=== PATIENT | male | born 1960 | race Caucasian/White ===

== ENCOUNTER 2019-04-17 06:10 | Inpatient (IN) | payer MEDICARE, OTHER ==
[2019-04-17] MEDS ORDERED: ONDANSETRON HCL/PF 4 MG/ 2ML VIAL ONE (08:48)
[2019-04-17] MEDS ORDERED: SODIUM CHLORIDE IRRIG SOLUTION 3,000 ML IRRIG.SOLN IR ONE (08:48)
[2019-04-17] MEDS ORDERED: LACTATED RINGERS 1,000 ML IV.SOLN IV ONE (08:48)
[2019-04-17] MEDS ORDERED: LIDOCAINE HCL 1% PF 300MG/30ML VIAL ONE (08:48)
[2019-04-17] MEDS ORDERED: MEPERIDINE (NF) 100 MG/ML INJ ONE ×3 (08:48→09:37)
[2019-04-17] MEDS ORDERED: MIDAZOLAM HCL 2 MG/2 ML VIAL ONE (08:48)
[2019-04-17] MEDS ORDERED: fentaNYL CITRATE/PF 100 MCG/2 ML INJ. ONE ×2 (08:48→09:35)
[2019-04-17] MEDS ORDERED: ROCURONIUM BROMIDE 10 MG/ML 5ML VIAL ONE (08:48)
[2019-04-17] MEDS ORDERED: ceFAZolin SODIUM 1 GM VIAL ONE (08:48)
[2019-04-17] MEDS ORDERED: PROPOFOL 200 MG/20 ML VIAL IV ONE (08:48)
[2019-04-17] MEDS ORDERED: FAMOTIDINE 20 MG/2 ML VIAL IV ONE (08:48)
[2019-04-17] MEDS ORDERED: HYDROmorphone HCL/PF 1 MG/ML VIAL ONE ×2 (08:48→09:19)
[2019-04-17] MEDS ORDERED: SUGAMMADEX SODIUM 200 MG/2 ML VIAL IV ONE (08:48)
[2019-04-17] MEDS ORDERED: BUPIV. HCL 0.25% (2.5MG/ML)/EPI. (1:200,000) PF 10 ML VIAL IM ONE (08:48)
[2019-04-17] MEDS ORDERED: DEXAMETHASONE SODIUM PHOSPHATE 10 MG/ML VIAL ONE (08:48)
[2019-04-17] MEDS ORDERED: LIDOCAINE HCL 2% PF 100MG/5ML VIAL IJ ONE (08:48)
[2019-04-17] MEDS ORDERED: SEVOFLURANE 250 ML LIQUID IH ONE (08:48)
[2019-04-17] MEDS ORDERED: 0.9 % SODIUM CHLORIDE 1,000 ML IV ONE (10:20)
[2019-04-17 10:26] VITALS: BMI 38.2
[2019-04-17] MEDS ORDERED: PROMETHAZINE HCL 25 MG in 0.9 % SODIUM CHLORIDE 50 ML IV PRN (10:27)
[2019-04-17] MEDS ORDERED: ONDANSETRON HCL/PF 4 MG/ 2ML VIAL IVP PRN (10:27)
[2019-04-17] MEDS ORDERED: IPRATROPIUM/ALBUTEROL SULFATE 3 ML AMPUL.NEB NEB PRN (10:27)
[2019-04-17] MEDS ORDERED: ACETAMINOPHEN 1,000 MG/100 ML INJ IV PRN (10:27)
[2019-04-17] MEDS: 0.9 % SODIUM CHLORIDE 1,000 ML IV SCH ×2 (10:41→17:45)
--- NOTE | 2019-04-17 10:46 | History and Physical Report ---
History of Present Illnes - History of Present Illness Reason for Visit: S/P LSG History of Present Illness: Patient is a 59-year-old male who has tried multiple diets and exercise programs with no success. he has always struggled with his weight. Patient and surgeon decided to proceed with gastric sleeve procedure. Procedure went well- He will be admitted and monitored s/p surgical intervention. Patient has been on a liquid diet prior to surgery so he is a risk of dehydration s/p surgery. He will be admitted for IV hydration to help hydrate patient until he is able to tolerate a sufficient oral intake, will treat pain with IV medication until patient is able to tolerate oral meds, IV antiemetics to help reduce episodes of nausea and/or vomiting. Patient will be monitored closely using telemetry s/p surgery d/t HTN. Patient appears very uncomfortable s/p surgery. Will use incentive spirometer frequently due to KANG and will use CPAP when sleeping. 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: Migraine Gastrointestinal: GERD Psych: Anxiety, Depression Musculoskeletal: Chronic low back pain, Other (Joint Pain) Endocrine: obesity (Morbid) - Past Surgical History Past Surgical History: Hernia Repair, Other (RFA) - Past Social History Smoke: No Alcohol: None Drugs: None Lives: With Family Domestic Violence: Negative - Health Maintenance Health Maintenance: Cholesterol, Tetanus, Influenza Vaccine, Pneumococcal Vaccine Influenza Vaccine: Current for this Influenza Season Pneumonia Vaccine: Yes Resuscitation Status: Resusciation Status Resuscitation Status Full Code Review of Systems - Review of Systems Constitutional: negative: Fever, Chills Eyes: negative: pain, conjunctivae inflammation, eyelid inflammation ENT: negative: Ear Pain, Ear Discharge, Throat Pain Respiratory: SOB with Excertion (due to obesity). negative: Cough, Shortness of Breath Cardiovascular: Paroxysmal Noc. Dyspnea. negative: Chest Pain, Edema Gastrointestinal: Nausea, Abdominal Pain (s/p LSG) Genitourinary: negative: Dysuria Musculoskeletal: Back Pain, Leg Pain, Other (chronic joint pain) Skin: Other (incisions to abdomen s/p LSG) Neurological: Weakness - Medications/Allergies Allergies/Adverse Reactions: Allergies Allergy/AdvReac Type Severity Reaction Status Date / Time No Known Allergies Allergy Unverified 04/17/19 10:17 Home Medications: Home Medications Atorvastatin Calcium 10 mg PO HS 04/17/19 Gabapentin [Neurontin] 600 mg PO BID 04/17/19 Hydrocodone/Acetaminophen [[place] 10-325 Tablet] 1 each PO Q6H PRN 04/17/19 Lisinopril 20 mg PO DAILY 04/17/19 Lisinopril/Hydrochlorothiazide [Zestoretic] 1 each PO DAILY 04/17/19 Methocarbamol 750 mg PO DAILY 04/17/19 Omeprazole 40 mg PO DAILY 04/17/19 Tramadol HCl [Ultram] 50 - 100 mg PO DAILY PRN 04/17/19 Current Inpatient Medications: Current Inpatient Medications Acetaminophen (Ofirmev) 1,000 mg IV Q6H PRN PRN Reason: For Mild Breakthrough Pain Stop: 04/21/19 10:26 Hydrocodone Bitart/Acetaminophen (Hycet 7.5-325mg/15 Ml Ud Cup) 15 ml PO Q4 PRN PRN Reason: Moderate Pain (Score 5-7) Stop: 04/21/19 10:26 Albuterol/Ipratropium (Duoneb) 3 ml NEB Q4 PRN PRN Reason: Wheezing Stop: 05/17/19 10:26 Enoxaparin Sodium (Lovenox) 40 mg SQ DAILY [facility] Stop: 05/02/19 10:28 Famotidine (Pepcid) 20 mg IVP BID [facility] Stop: 04/21/19 20:59 Cefazolin Sodium 1 gm/ Sodium (Chloride) 50 mls @ 100 mls/hr IV Q8H [facility] Stop: 04/18/19 00:29 Sodium Chloride (Normal Saline) 1,000 mls @ 150 mls/hr IV Q8H [facility] Stop: 05/17/19 10:29 Promethazine HCl 25 mg/ Sodium (Chloride) 51 mls @ 200 mls/hr IV Q6 PRN PRN Reason: Nausea / Vomiting Stop: 04/21/19 10:26 Ketorolac Tromethamine (Toradol) 30 mg IV Q6H PRN PRN Reason: For Mild Pain Stop: 04/22/19 09:59 Morphine Sulfate () 2 mg IV Q2H PRN PRN Reason: Severe Pain 8-10 Stop: 04/21/19 10:26 Ondansetron HCl (Zofran) 4 mg IVP Q6H PRN PRN Reason: Nausea / Vomiting Stop: 08/26/19 10:26 Exam - Exam Vital Signs: Vital Signs (72 hours) 04/17/19 04/17/19 04/17/19 10:19 10:20 10:27 Temperature 98.6 F 98.6 F Pulse Rate 75 Pulse Rate [ 66 66 Right Pulse ox] Respiratory 18 18 Rate Blood Pressure 158/80 158/80 [Right Arm] O2 Sat by Pulse 93 93 93 Oximetry General: Alert, Oriented to Person, Oriented to Place, Mild distress, Other (Still arousing s/p surgery), Morbidly Obese HEENT: PERRLA, EOMI, Nose Mucous membr. moist/[place] Neck: Normal Range of Motion Carotids: No bruit Lungs: Clear to auscultation, Normal air movement (Hurts to take a deep breath) Cardiovascular: Regular rate, Normal S1, Normal S2 Peripheral Edema: None Peripheral Pulses: 2+ Abdomen: Soft, Decreased Bowel Sounds Integumentary: Warm, Dry, Pale, Other (Incison sites x 5 without redness/yumiko thema/drainage- skin adhesive intact) Extremities: No edema, Normal pulses, No tenderness/swelling Neurological: Strength Equal Bilat, Sensation intact Psych/Mental Status: Mental status NL, Appropriate Affect Assessment/Plan - Assessment/Plan (1) Status post gastric surgery Status: Acute Current Visit: Yes Plan: Plan to admit for IV hydration, IV pain meds, and IV antiemetics. Lovenox and SCDs to help prevent DVTs, IS and frequent ambulation will be implemented. Start ice chips and advance diet as tolerated. (2) Morbid obesity due to excess calories Status: Acute Current Visit: Yes Plan: Patient is s/p gastric sleeve. We will assist patient with implementing gastric sleeve diet protocol starting with ice chips and clear liquids and advancing as tolerated. (3) KANG on CPAP Status: Acute Current Visit: Yes Plan: Will use CPAP when sleeping (4) Hypertension Status: Acute Current Visit: Yes Qualifiers: Hypertension type: essential hypertension Qualified Code(s): I10 - Essential (primary) hypertension Plan: Will hold medication until able to tolerate PO- will monitor blood pressures closely (5) Depression with anxiety Status: Acute Current Visit: Yes Plan: Will hold medication at this time until patient can tolerate PO; will assess patient regularly (6) Chronic joint pain Status: Acute Current Visit: Yes Plan: Will give pain meds as needed for abdominal pain and monitor his chronic pain; may implement K-pad if needed (7) Nausea after anesthesia Status: Acute Current Visit: Yes Plan: Pepcid IV BID ordered; IV antiemetics, and IVFs VTE Assessment - RISK FACTOR SCORE VTE RISK FACTOR SCORES: AGE 40-60 YEARS, OBESITY, MAJOR SURGERY/ANESTHESIA TIME > 1 HOUR - RISK VTE HIGH RISK: SCORE OF 3-4 (RISK PROXIMAL DVT 4-8%) PROPHYLAXIS NEEDED (Lovenox daily, frequent ambulation, Incentive spirometer, SCDs)
[2019-04-17] MEDS: MORPHINE SULFATE 2 MG/ML VIAL IV PRN ×4 (10:50→20:07)
[2019-04-17] MEDS: ceFAZolin SODIUM 1 GM in 0.9 % SODIUM CHLORIDE 50 ML IV SCH (16:25)
[2019-04-17] MEDS: FAMOTIDINE 20 MG/2 ML VIAL IVP SCH (23:55)
[2019-04-18] MEDS: ceFAZolin SODIUM 1 GM in 0.9 % SODIUM CHLORIDE 50 ML IV SCH (01:03)
[2019-04-18] MEDS: HYDROcodone-ACETAMIN 7.5-325/15ML SOLN UD CUP PO PRN ×4 (01:06→19:56)
[2019-04-18] MEDS: MORPHINE SULFATE 2 MG/ML VIAL IV PRN ×2 (04:07→09:09)
[2019-04-18] MEDS: 0.9 % SODIUM CHLORIDE 1,000 ML IV SCH ×3 (04:58→18:17)
[2019-04-18 07:33] LABS: eGFR (Non-African) > 60
[2019-04-18 07:34] LABS: BASOPHILS % 0.3 % (0.0-1.5); NEUTROPHILS # 7.8 # k/uL (1.4-7.7)
--- NOTE | 2019-04-18 07:44 | Inpatient Progress Note ---
Subjective - Required Recertification Statement I anticipate X number of days because-include discharge plan: 1 - Review of Systems Events since last encounter: Patient is lying in bed this morning awake. He states that he did not get much sleep. He was having a lot of discomfort last night. He states that pain is improving. He has had some nausea and moderate discomfort from the gas. He denies any chest pain or shortness of breath. He has been up ambulating in the halls and using incentive spirometer while awake.He did have a low grade fever this morning-used incentive spirometer and walked and it lowered. He was having some increased pain this morning- told on him and stated that he chugged a glass of juice- re-educated patient about sipping. General: Denies: Chills, Night Sweats HEENT: Denies: Head Aches, Dysphasia Pulmonary: Denies: Dyspnea, Cough Cardiovascular: Denies: Chest Pain, Light Headedness Gastrointestinal: Nausea, Vomiting, Abdominal Pain (s/p LSG) Genitourinary: Denies: Dysuria Musculoskeletal: Back Pain Neurological: Denies: Weakness Objective - Exam Vitals and I&O: Vital Signs Temp 98.3 F 04/18/19 05:49 Pulse 59 L 04/18/19 05:49 Resp 20 04/18/19 05:49 BP 134/59 04/18/19 05:49 Pulse Ox 98 04/18/19 06:00 Intake & Output 04/17/19 04/17/19 04/18/19 11:59 23:59 11:59 Intake Total 50 Output Total 250 600 600 Balance -250 -550 -600 Weight 114.305 kg Intake: Oral 50 Output: Urine 250 600 600 Other: Voiding Method Urinal # Voids 1 # Bowel Movements 0 0 General: Alert, Oriented to Person, Oriented to Place, Oriented to Time, Cooperative, Moderate distress, Morbidly Obese HEENT: Atraumatic, PERRLA, Mouth Mucous membr. moist/[place], Nose Mucous membr. moist/[place] Neck: Supple, +2 carotid pulse wo bruit Lungs: Clear to auscultation, Normal air movement, Speaks full Sentences Cardiovascular: Regular rate, Normal S1, Normal S2 Abdomen: Soft, Decreased Bowel Sounds Extremities: No edema, Normal pulses, No tenderness/swelling Skin: Warm, Dry, Pale, Other (incision sites x5 without redness/erythema- skin adhesive intact) Neurological: Normal gait, Normal speech, Strength Equal Bilat, Sensation intact Psych/Mental Status: Mental status NL, Mood NL, Appropriate Affect - Results Results: Laboratory Results WBC 10.80 K/ul (4.00-12.00) 04/18/19 05:00 RBC 4.20 M/ul (3.90-5.20) 04/18/19 05:00 Hgb 12.5 g/dL (12.0-18.0) 04/18/19 05:00 Hct 37.0 % (37.0-53.0) 04/18/19 05:00 MCV 88.0 fl (80.0-100.0) 04/18/19 05:00 MCH 29.7 pg (28.0-34.0) 04/18/19 05:00 MCHC 33.7 g/dL (30.0-36.0) 04/18/19 05:00 RDW 12.6 % (11.3-14.3) 04/18/19 05:00 Plt Count 207 K/mm3 (130-400) 04/18/19 05:00 Neut % (Auto) 72.2 % (39.0-79.0) 04/18/19 05:00 Lymph % (Auto) 18.6 % (16.0-50.0) 04/18/19 05:00 Maverick % (Auto) 8.3 % (0.0-11.0) 04/18/19 05:00 Eos % (Auto) 0.6 % (0.0-6.8) 04/18/19 05:00 Baso % (Auto) 0.3 % (0.0-1.5) 04/18/19 05:00 Neut # (Auto) 7.8 # k/uL (1.4-7.7) H 04/18/19 05:00 Lymph # (Auto) 2.0 # k/uL (0.6-4.0) 04/18/19 05:00 Maverick # (Auto) 0.9 # k/uL (0.0-0.9) 04/18/19 05:00 Eos # (Auto) 0.1 # k/uL (0.0-0.6) 04/18/19 05:00 Baso # (Auto) 0.0 # k/uL (0.0-0.5) 04/18/19 05:00 Sodium 143 mmol/L (137-145) 04/18/19 05:00 Potassium 4.0 mmol/L (3.5-5.1) 04/18/19 05:00 Chloride 106 mmol/L (98-107) 04/18/19 05:00 Carbon Dioxide 25 mmol/L (22-30) 04/18/19 05:00 Anion Gap 16.0 04/18/19 05:00 BUN 12 mg/dL (9-20) 04/18/19 05:00 Creatinine 1.12 mg/dL (0.66-1.25) 04/18/19 05:00 Estimated Creat Clear 117 04/18/19 05:00 Est GFR ( Amer) > 60 (60-) 04/18/19 05:00 Est GFR (Non-Af Amer) > 60 (60-) 04/18/19 05:00 Glucose 130 mg/dL (74-106) H 04/18/19 05:00 Calcium 8.8 mg/dL (8.4-10.2) 04/18/19 05:00 Total Bilirubin 0.3 mg/dL (0.2-1.3) 04/18/19 05:00 AST 41 U/L (15-46) 04/18/19 05:00 ALT 33 U/L (13-69) 04/18/19 05:00 Alkaline Phosphatase 38 U/L (38-126) 04/18/19 05:00 Total Protein 6.9 g/dL (6.3-8.2) 04/18/19 05:00 Albumin 4.0 g/dL (3.5-5.0) 04/18/19 05:00 Assessment/Plan - Assessment/Plan (1) Status post gastric surgery Status: Acute Current Visit: Yes Assessment: Patient experiencing nausea; has been ambulating, wearing SCDs while in bed, using incentive spirometry, patient receiving lovenox to prevent DVT Plan: Patient getting IV fluids for hydration, IV pain meds, and IV antiemetics. Lovenox and SCDs to help prevent DVTs, IS and frequent ambulation will be implemented. Patient eating ice chips and will advance diet to clear liquids as tolerated once nausea and vomiting is controlled. Will continue with Pepcid IV BID for GI upset (2) Morbid obesity due to excess calories Status: Acute Current Visit: Yes Assessment: Patient tolerating ice chips and water; some nausea Plan: Will advance diet to clear liquids today (3) KANG on CPAP Status: Acute Current Visit: Yes Assessment: Stable Plan: Will continue on CPAP (4) Hypertension Status: Acute Current Visit: Yes Qualifiers: Hypertension type: essential hypertension Qualified Code(s): I10 - Essential (primary) hypertension Assessment: Blood pressure slightly elevated 150s Plan: Will start patient on BP med (5) Depression with anxiety Status: Acute Current Visit: Yes Assessment: Anxiety and depression is stable Plan: Will continue to hold medication (6) Chronic joint pain Status: Acute Current Visit: Yes Assessment: Stable Plan: Pain medication ordered (7) Nausea after anesthesia Status: Acute Current Visit: Yes Assessment: Still having some nausea Plan: Will continue with IV Zofran and Phenergan as needed
[2019-04-18] MEDS ORDERED: MORPHINE SULFATE 2 MG/ML VIAL ONE (08:57)
[2019-04-18] MEDS: FAMOTIDINE 20 MG/2 ML VIAL IVP SCH ×2 (09:06→21:16)
[2019-04-18] MEDS: KETOROLAC TROMETHAMINE 30 MG/1ML VIAL IV PRN ×3 (09:06→21:13)
[2019-04-18] MEDS ORDERED: ENOXAPARIN SODIUM 40 MG/0.4 ML DISP.SYRIN SQ SCH (10:29)
[2019-04-19] MEDS: 0.9 % SODIUM CHLORIDE 1,000 ML IV SCH
[2019-04-19] MEDS: HYDROcodone-ACETAMIN 7.5-325/15ML SOLN UD CUP PO PRN ×2 (02:53→08:29)
[2019-04-19] MEDS: KETOROLAC TROMETHAMINE 30 MG/1ML VIAL IV PRN (03:28)
--- NOTE | 2019-04-19 07:24 | Discharge Summary ---
Discharge Summary - Discharge [facility] Admission Date: 04/17/19 Discharge Date: 04/19/19 Discharge To: Home History of Present Illness: Patient is a 59-year-old male who has tried multiple diets and exercise programs with no success. he has always struggled with his weight. Patient and surgeon decided to proceed with gastric sleeve procedure. Procedure went well- He will be admitted and monitored s/p surgical intervention. Patient has been on a liquid diet prior to surgery so he is a risk of dehydration s/p surgery. He will be admitted for IV hydration to help hydrate patient until he is able to tolerate a sufficient oral intake, will treat pain with IV medication until patient is able to tolerate oral meds, IV antiemetics to help reduce episodes of nausea and/or vomiting. Patient will be monitored closely using telemetry s/p surgery d/t HTN. Patient appears very uncomfortable s/p surgery. Will use incentive spirometer frequently due to KANG and will use CPAP when sleeping. Condition at Discharge: Stable Home Medications: Ambulatory Orders Medication Instructions Recorded Atorvastatin Calcium 10 mg PO HS 04/17/19 Gabapentin [Neurontin] 600 mg PO BID 04/17/19 Hydrocodone/Acetaminophen [[place] 1 each PO Q6H PRN 04/17/19 10-325 Tablet] Lisinopril 20 mg PO DAILY 04/17/19 Lisinopril/Hydrochlorothiazide 1 each PO DAILY 04/17/19 [Zestoretic] Methocarbamol 750 mg PO DAILY 04/17/19 Omeprazole 40 mg PO DAILY 04/17/19 Tramadol HCl [Ultram] 50 - 100 mg PO DAILY PRN 04/17/19 Consultations this Visit: None Procedures this Visit: None Allergies/Adverse Reactions: Allergies Allergy/AdvReac Type Severity Reaction Status Date / Time No Known Allergies Allergy Unverified 04/17/19 10:17 Patient Problems: Current Active Problems Problem Status Onset Chronic joint pain Acute Depression with anxiety Acute Hypertension Acute Morbid obesity due to excess calories Acute Nausea after anesthesia Acute KANG on CPAP Acute Status post gastric surgery Acute Discharge Summary: Patient is a 59-year-old male that underwent the gastric sleeve procedure. He had some issues with nausea and dry heaves but has done well. He has been very cooperative with his care by ambulating frequently, using his incentive spirometer, and wearing his SCDs while in bed. He has been compliant with his diet during hospitalization. He is having minimal discomfort at this time and minimal nausea- he has been passing gas and belching. He is aware of discharge instructions and what he can and cannot do post surgical- he is aware of the strict diet he must follow to decrease discomfort and have success after procedure. He has family support and family will be taking him home- medications written by surgeon given to patient. He feels ready to go home. Hospital Course: Patient received IV pain medications, antiemetics, and IVF and was transitioned to oral. He has been up ambulating and using incentive spirometer. - Final Diagnosis (1) Status post gastric surgery Problems: Incision without redness or drainage, positive bowel sounds, minimal discomfort, belching and flatus, no extremity pain or edema, LCTA Right or Left: Right (2) Morbid obesity due to excess calories Problems: Continue with bariatric sleeve diet- clear liquids today and start full liquids tomorrow; protein shake 80-100 grams protein Right or Left: Right (3) KANG on CPAP Problems: Stable- continue to wear CPAP Right or Left: Right (4) Hypertension Problems: Stable- continue home medications Right or Left: Right (5) Depression with anxiety Problems: Stable- continue home medications Right or Left: Right (6) Chronic joint pain Problems: Stable- continue home meds Right or Left: Right (7) Nausea after anesthesia Problems: Resolved Right or Left: Right
[2019-04-19 08:49] VITALS: BP 147/84
--- NOTE | 2019-04-21 15:16 | Operative Note ---
PREOPERATIVE DIAGNOSIS: 1. Morbid obesity. 2. Hypertension. 3. Hyperlipidemia. 4. Sleep apnea. POSTOPERATIVE DIAGNOSIS: 1. Morbid obesity. 2. Hypertension. 3. Hyperlipidemia. 4. Sleep apnea. 5. Hiatal hernia. PROCEDURES PERFORMED: 1. Laparoscopic vertical sleeve gastrectomy. 2. Upper gastrointestinal endoscopy. 3. Laparoscopic repair of hiatal hernia. SURGEON: Shilo Torres M.D. INDICATIONS FOR PROCEDURE: Mr. Vinson is a 59-year-old male who presented with features of morbid obesity with the above-listed comorbidities. He was noted to have a weight of 262 pounds with a BMI of 39.8. The patient was advised laparoscopic vertical sleeve gastrectomy and possible hiatal hernia repair. The patient showed understanding and agreed to proceed. DESCRIPTION OF PROCEDURE: After explaining to the patient in detail and informed consent was obtained, the patient was identified in the preoperative holding area. The patient was transferred to the operating room and was placed in supine position. Sequential compressive devices were placed for DVT prophylaxis. Preoperative antibiotics were given. After induction of anesthesia, the abdomen was prepped and draped in a sterile fashion. Through a left upper quadrant 1-cm incision, and using Optiview technique, the peritoneal cavity was entered and pneumoperitoneum was created. Thereafter, under direct vision, a 5-mm trocar was placed in the left midabdomen, a 15-mm trocar was placed in the right midabdomen and another 5-mm trocar was placed in the right subcostal region. Through a 1-cm incision in the epigastrium, a April retractor was introduced and the left lobe of the liver was retracted. On initial inspection, the patient was noted to have a 4 cm hiatal hernia. Using pars flaccida technique, the right jamal was identified and the sac was gently dissected off the right jamal using hook electrocautery and this was gently dissected anteriorly. The phrenoesophageal membrane was divided. I continued dissection along the left jamal. I mobilized the stomach as much as possible. To obtain good mobilization of the hernia, I had to take down the short gastrics and the gastrophrenic ligament was divided and I continued dissection to mobilize as much of the distal esophagus to be well within the stomach. Once this was achieved, I then passed a 36 Sinhala orogastric Hurst bougie into the stomach and this was placed along the lesser curve of the stomach. Using this bougie as a guide, anterior cruroplasty was done with a [id number] Ethibond suture using the Endo Stitch device. Two sutures were then used to anchor the esophagus onto the left and the right crura separately. I then took down the gastroepiploic vessels using a LigaSure. Distally, the gastroepiploic vessels were taken down up to about 4 cm proximal to the pylorus. The stomach was then divided in a vertical fashion with multiple Endo JAYLEN Covidien Stapler black loads. The initial firing was directed outwards towards the greater curvature, and subsequent firings were directed towards the Angle of His to create a loose sleeve around the 36 Sinhala bougie. The orogastric tube was then removed and upper GI endoscopy was performed. The scope was introduced into the esophagus and was gradually advanced into the stomach. The sleeve appeared to be of adequate size. An air leak test was performed by insufflating the stomach and by irrigation of fluid along the staple line. There was no leak noted. The scope was then removed. Absolute hemostasis was ensured. Thorough saline irrigation was given. Approximately 10 mL of a lidocaine-Marcaine mix was instilled under the left hemidiaphragm. The sleeve gastrectomy specimen and the April retractor was removed. The incisions were then closed with 4-0 Monocryl. The 12-mm port site incision was closed with 0 Vicryl using a fascial closure device. The skin was closed with 4-0 Monocryl for all the incisions. Dermabond was applied. The patient was stable at the end of the procedure. The patient was awakened from anesthesia and was transferred to the recovery room in stable condition. ESTIMATED BLOOD LOSS: Minimal. CONDITION OF THE PATIENT: Stable. FLUIDS GIVEN: Per Anesthesia note. SPECIMEN(S) SENT: Sleeve gastrectomy specimen. COMPLICATIONS: None. ANESTHESIA: General. Shilo Torres M.D. LIZETT/alcides (Please copy [facility] provider when applicable) Job #[id number] RICKI
== END 2019-04-19 08:40 | disposition home or self-care (01) | DRG 621 ==
LOC: OPSURG 06:10 → SOUTH 10:14
PROVIDERS: ADMIT Nurse Practitioner Family; ATTEND Nurse Practitioner Family
PROC: 0DB64Z3 Excision of Stomach, Percutaneous Endoscopic Approach, Vertical (ICD-10-PCS; principal; 2019-04-17)
PROC: 0BQT4ZZ Repair Diaphragm, Percutaneous Endoscopic Approach (ICD-10-PCS; 2019-04-17)
DX: E66.01 Morbid (severe) obesity due to excess calories (principal); I10 Essential (primary) hypertension; G47.33 Obstructive sleep apnea (adult) (pediatric); E78.5 Hyperlipidemia, unspecified; G43.909 Migraine, unspecified, not intractable, without status migrainosus; K21.9 Gastro-esophageal reflux disease without esophagitis; G89.29 Other chronic pain; F41.8 Other specified anxiety disorders; M54.5 Low back pain; R50.9 Fever, unspecified; K44.9 Diaphragmatic hernia without obstruction or gangrene; M25.50 Pain in unspecified joint; Z79.899 Other long term (current) drug therapy; Z68.39 Body mass index [BMI] 39.0-39.9, adult
CPT/HCPCS: 43235; 43775; 80053; 85025; 99024; 99204; 99238; J0690; J1170; J1650; J1885; J2001; J2175; J2250; J2270; J2405; J2704; J3010; A9270-GY; J7030; J7120